=== PATIENT | female | born 1940 | race Caucasian/White ===

== ENCOUNTER 2016-07-21 14:30 | Inpatient (IN) | payer OTHER ==
[~2016-07-21] VITALS: Ht 165.1 cm; Wt 71.6 kg
[~2016-07-21 14:30] MED LIST: ALBUTEROL2.5 MG/3 M IH; ALKA-SELTZER PL25 MG PO; ASPIR-LOW81 MG PO; ATORVASTATIN CA40 MG PO; CARDIZEM CD,CA180 MG PO; HYDROCHLOROTHIA25 MG PO; LEXAPRO5 MG PO; METOPROLOL TART25 MG PO; MOEXIPRIL HCL7.5 MG PO; PEPCID COMPLET1 EACH PO; TYLENOL REGULA325 MG PO; UNIVASC7.5 MG PO; XARELTO20 MG PO
[2016-07-21 15:18] LABS: HEMATOCRIT 44.8 % (36.0-46.0); MCH 30.2 PG (29.0-34.0); MCHC 34.6 G/DL (30.0-36.0); MCV 87.3 FL (83-99); MEAN PLAT.VOLUME 10.8 uM^3 (9.5-12.4); PLATELET COUNT 161 K/uL (156-360); RBC DIS.WIDTH-CV 13.7 % (11.8-14.6); RBC DIS.WIDTH-SD 43.6 % (39-53); RED BLOOD COUNT 5.13 M/uL (3.80-5.20); WHITE BLOOD COUNT 26.5 K/uL (4.1-10.2)
[2016-07-21 15:22] LABS: EOSINOPHIL (%) 0 % (0-5); IMMATURE GRANULOCYTE (%) 0.4 % (0.0-0.7); LYMPHOCYTE COUNT 0.3 K/uL (1.0-2.8); MONOCYTE (%) 3.1 % (3-12); MONOCYTE COUNT 0.8 K/uL (0-0.8); NEUTROPHIL (%) 95.3 % (45-76); NEUTROPHIL COUNT 25.3 K/uL (1.8-6.4)
[2016-07-21 15:26] LABS: AMYLASE 59 IU/L (1-118); CHLORIDE 93 mEq/L (99-109); POTASSIUM 3.1 mEq/L (3.7-5.4); PROTHROMBIN TIME 10.5 (9.2-11.2); SODIUM 132 mEq/L (136-147)
[2016-07-21 15:28] LABS: GLUCOSE 126 mg/dL (70-99)
[2016-07-21 15:29] LABS: ANION GAP 14 MEQ/L (2-14)
[2016-07-21 15:31] LABS: SERUM ETHYL ALCOHOL < 10 mg/dL
[2016-07-21 15:32] LABS: GFR ESTIMATE (CALCULATED) 47 mL/min/
[2016-07-21 15:33] LABS: UREA NITROGEN (BUN) 13 mg/dL (9-23)
[2016-07-21 15:35] LABS: LIPASE 18 U/L (1.0-51.0)
[2016-07-21 15:38] LABS: TROP-I INTERPRETATION NEGATIVE; TROPONIN-I 0.11 ng/mL (0.0-0.30)
[2016-07-21 15:57] LABS: ADD MIUA? YES; BILIRUBIN NEGATIVE; BLOOD MODERATE; COLOR DK YELLOW ((YELLOW)); GLUCOSE (STRIP) NEGATIVE; KETONES NEGATIVE; LEUKOCYTES MODERATE; NITRITE NEGATIVE; PH, URINE 6.5 (5-8); PROTEIN (STRIP) 30; SPECIFIC GRAVITY 1.013 (1.000-1.030)
[2016-07-21 16:15] LABS: AMPHETAMINE NEGATIVE (500 ng/mL); BARBITURATES NEGATIVE (200 ng/mL); BENZODIAZEPINES NEGATIVE (150 ng/mL); COCAINE NEGATIVE (150 ng/mL); INTERNAL CONTROLS VALID? YES; METHADONE NEGATIVE (200 ng/mL); METHAMPHETAMINE NEGATIVE (500 ng/mL); OPIATES (MORPHINE) NEGATIVE (100 ng/mL); OXYCODONE NEGATIVE (100 ng/mL); PHENCYCLIDINE NEGATIVE (25 ng/mL); PROPOXYPHENE NEGATIVE (300 ng/mL); THC CANNABINOIDS NEGATIVE (50 ng/mL); TRICYCLIC ANTIDEPRESSANTS NEGATIVE (300 ng/mL)
[2016-07-21 17:02] LABS: BACTERIA 2+ /HPF; EPITHELIAL CELLS 1+ /HPF; MUCUS TRACE /LPF; UCUL ADDED? YES
[2016-07-21 17:03] LABS: CASTS PRESENT /LPF; CRYSTALS NONE SEEN
[2016-07-21 18:44] LABS: INFLUENZA A VIRAL ANTIGEN NEGATIVE; INFLUENZA B VIRAL ANTIGEN NEGATIVE
[2016-07-21 23:00] VITALS: BP 112/56; BP 113/56
[2016-07-22 04:00] VITALS: BP 127/69
[2016-07-22 07:34] LABS: MCHC 33.2 G/DL (30.0-36.0); MCV 87.4 FL (83-99); MEAN PLAT.VOLUME 11.4 uM^3 (9.5-12.4); PLATELET COUNT 128 K/uL (156-360); RBC DIS.WIDTH-CV 14.1 % (11.8-14.6); RBC DIS.WIDTH-SD 44.6 % (39-53); RED BLOOD COUNT 4.69 M/uL (3.80-5.20); WHITE BLOOD COUNT 21.3 K/uL (4.1-10.2)
[2016-07-22 08:01] LABS: TROP-I INTERPRETATION POSITIVE
[2016-07-22 08:02] LABS: TROPONIN-I 3.66 ng/mL (0.0-0.30)
[2016-07-22 08:05] LABS: ALKALINE PHOSPHATASE 64 IU/L (3-129); ANION GAP 13 MEQ/L (2-14); CHLORIDE 101 MEQ/L (99-109); GFR ESTIMATE (CALCULATED) 58 mL/min/; GLUCOSE 107 mg/dL (70-99); SAMPLE HEMOLYSIS CHECK 0; SAMPLE ICTERIC CHECK 0; SAMPLE LIPEMIA CHECK 0; SODIUM 135 MEQ/L (136-147); TOTAL BILIRUBIN 2.1 MG/DL (0.0-1.0); UREA NITROGEN (BUN) 14 mg/dL (9-23)
[2016-07-22 08:45] VITALS: BP 119/56
[2016-07-22 11:41] VITALS: BP 111/58
[2016-07-22 15:38] VITALS: BP 138/63
[2016-07-22 19:46] VITALS: BP 119/56
[2016-07-22 23:41] VITALS: BP 129/60
[2016-07-23 04:14] VITALS: BP 121/65
[2016-07-23 07:00] VITALS: BP 127/63
[2016-07-23 07:55] LABS: HEMATOCRIT 40.5 % (36.0-46.0); MCH 28.7 PG (29.0-34.0); MCHC 32.8 G/DL (30.0-36.0); MCV 87.5 FL (83-99); MEAN PLAT.VOLUME 10.8 uM^3 (9.5-12.4); PLATELET COUNT 104 K/uL (156-360); RBC DIS.WIDTH-CV 14.4 % (11.8-14.6); RBC DIS.WIDTH-SD 45.8 % (39-53); RED BLOOD COUNT 4.63 M/uL (3.80-5.20); WHITE BLOOD COUNT 13.7 K/uL (4.1-10.2)
[2016-07-23 08:15] LABS: TROP-I INTERPRETATION POSITIVE
[2016-07-23 08:17] LABS: TROPONIN-I 3.28 ng/mL (0.0-0.30)
[2016-07-23 09:54] LABS: ALKALINE PHOSPHATASE 64 IU/L (3-129); ANION GAP 12 MEQ/L (2-14); CHLORIDE 108 MEQ/L (99-109); GFR ESTIMATE (CALCULATED) 52 mL/min/; GLUCOSE 102 mg/dL (70-99); POTASSIUM 2.7 MEQ/L (3.7-5.4); SAMPLE HEMOLYSIS CHECK 0; SAMPLE ICTERIC CHECK 0; SAMPLE LIPEMIA CHECK 0; TOTAL BILIRUBIN 2.1 MG/DL (0.0-1.0); UREA NITROGEN (BUN) 17 mg/dL (9-23)
[2016-07-23 09:59] LABS: SODIUM 143 MEQ/L (136-147)
[2016-07-23 12:28] VITALS: BP 115/66
[2016-07-23 16:17] VITALS: BP 125/63
[2016-07-23 18:26] VITALS: BP 140/65
[2016-07-23 18:49] LABS: ANION GAP 11 MEQ/L (2-14); CHLORIDE 106 MEQ/L (99-109); GFR ESTIMATE (CALCULATED) 47 mL/min/; POTASSIUM 3.1 MEQ/L (3.7-5.4); SAMPLE HEMOLYSIS CHECK 0; SAMPLE ICTERIC CHECK 0; SAMPLE LIPEMIA CHECK 0; SODIUM 140 MEQ/L (136-147); UREA NITROGEN (BUN) 19 mg/dL (9-23)
[2016-07-23 18:50] LABS: GLUCOSE 194 mg/dL (70-99)
[2016-07-23 23:20] VITALS: BP 116/71
[2016-07-24 03:09] VITALS: BP 118/75
[2016-07-24 07:12] LABS: HEMATOCRIT 45.2 % (36.0-46.0); MCH 28.9 PG (29.0-34.0); MCHC 33.4 G/DL (30.0-36.0); MCV 86.6 FL (83-99); MEAN PLAT.VOLUME 11.5 uM^3 (9.5-12.4); PLATELET COUNT 129 K/uL (156-360); RBC DIS.WIDTH-CV 14.3 % (11.8-14.6); RBC DIS.WIDTH-SD 45.4 % (39-53); RED BLOOD COUNT 5.22 M/uL (3.80-5.20); WHITE BLOOD COUNT 14.4 K/uL (4.1-10.2)
[2016-07-24 07:39] LABS: ALKALINE PHOSPHATASE 73 IU/L (3-129); ANION GAP 14 MEQ/L (2-14); CHLORIDE 97 MEQ/L (99-109); GFR ESTIMATE (CALCULATED) 47 mL/min/; SAMPLE HEMOLYSIS CHECK 0; SAMPLE ICTERIC CHECK 0; SAMPLE LIPEMIA CHECK 0; SODIUM 141 MEQ/L (136-147); UREA NITROGEN (BUN) 15 mg/dL (9-23)
[2016-07-24 07:45] LABS: GLUCOSE 116 mg/dL (70-99); POTASSIUM 2.2 MEQ/L (3.7-5.4); TOTAL BILIRUBIN 2.8 MG/DL (0.0-1.0)
[2016-07-24 08:18] VITALS: BP 122/66
[2016-07-24 11:11] VITALS: BP 98/57
[2016-07-24 15:57] LABS: ANION GAP 13 MEQ/L (2-14); CHLORIDE 96 MEQ/L (99-109); GFR ESTIMATE (CALCULATED) 39 mL/min/; GLUCOSE 143 mg/dL (70-99); SAMPLE HEMOLYSIS CHECK 0; SAMPLE ICTERIC CHECK 0; SAMPLE LIPEMIA CHECK 0; SODIUM 138 MEQ/L (136-147); UREA NITROGEN (BUN) 17 mg/dL (9-23)
[2016-07-24 16:07] VITALS: BP 102/56
[2016-07-24 16:12] LABS: POTASSIUM 2.7 MEQ/L (3.7-5.4)
[2016-07-24 19:15] VITALS: BP 106/58
[2016-07-25 00:43] VITALS: BP 121/63
[2016-07-25 05:18] VITALS: BP 105/55
[2016-07-25 06:55] LABS: HEMATOCRIT 41.8 % (36.0-46.0); MCH 30.3 PG (29.0-34.0); MCHC 34.7 G/DL (30.0-36.0); MCV 87.4 FL (83-99); MEAN PLAT.VOLUME 11.7 uM^3 (9.5-12.4); PLATELET COUNT 116 K/uL (156-360); RBC DIS.WIDTH-CV 14.4 % (11.8-14.6); RBC DIS.WIDTH-SD 46.4 % (39-53); RED BLOOD COUNT 4.78 M/uL (3.80-5.20)
[2016-07-25 06:56] LABS: WHITE BLOOD COUNT 9.8 K/uL (4.1-10.2)
[2016-07-25 07:26] LABS: ALKALINE PHOSPHATASE 64 IU/L (3-129); ANION GAP 13 MEQ/L (2-14); CHLORIDE 97 MEQ/L (99-109); GFR ESTIMATE (CALCULATED) 33 mL/min/; SAMPLE HEMOLYSIS CHECK 0; SAMPLE ICTERIC CHECK 1; SAMPLE LIPEMIA CHECK 0; SODIUM 140 MEQ/L (136-147); UREA NITROGEN (BUN) 22 mg/dL (9-23)
[2016-07-25 07:30] LABS: GLUCOSE 93 mg/dL (70-99); POTASSIUM 3.3 MEQ/L (3.7-5.4); TOTAL BILIRUBIN 3.4 MG/DL (0.0-1.0)
[2016-07-25 09:07] VITALS: BP 125/60
[2016-07-25 12:26] VITALS: BP 151/65
[2016-07-25] MEDS ORDERED: CORDARONE200 MG PO (15:09)
[2016-07-25] MEDS ORDERED: UNIVASC7.5 MG PO (15:10)
[2016-07-25] MEDS ORDERED: HYDROCHLOROTHIA25 MG PO (15:10)
[2016-07-25] MEDS ORDERED: LO-DOSE ASPIRIN81 M2 PO (15:10)
[2016-07-25 16:40] VITALS: BP 112/58
[2016-07-25 20:00] VITALS: BP 113/56
[2016-07-26 00:03] VITALS: BP 122/56
[2016-07-26 04:16] VITALS: BP 108/55
[2016-07-26 06:42] LABS: HEMATOCRIT 40.5 % (36.0-46.0); MCH 29.8 PG (29.0-34.0); MCHC 33.6 G/DL (30.0-36.0); MCV 88.8 FL (83-99); MEAN PLAT.VOLUME 11.3 uM^3 (9.5-12.4); PLATELET COUNT 132 K/uL (156-360); RBC DIS.WIDTH-CV 14.9 % (11.8-14.6); RBC DIS.WIDTH-SD 48.1 % (39-53); RED BLOOD COUNT 4.56 M/uL (3.80-5.20); WHITE BLOOD COUNT 7.9 K/uL (4.1-10.2)
[2016-07-26 07:15] LABS: ALKALINE PHOSPHATASE 65 IU/L (3-129); ANION GAP 10 MEQ/L (2-14); GFR ESTIMATE (CALCULATED) 43 mL/min/; MAGNESIUM 1.6 mg/dl (1.3-2.7); POTASSIUM 3.8 MEQ/L (3.7-5.4); SAMPLE HEMOLYSIS CHECK 0; SAMPLE ICTERIC CHECK 0; SAMPLE LIPEMIA CHECK 0; SODIUM 141 MEQ/L (136-147); UREA NITROGEN (BUN) 28 mg/dL (9-23)
[2016-07-26 07:17] VITALS: BP 140/64
[2016-07-26 07:20] LABS: CHLORIDE 108 MEQ/L (99-109); GLUCOSE 119 mg/dL (70-99); TOTAL BILIRUBIN 2.3 MG/DL (0.0-1.0)
[2016-07-26 11:28] VITALS: BP 131/82
[2016-07-26 15:23] VITALS: BP 122/58
[2016-07-26 19:45] VITALS: BP 126/71
[2016-07-27] VITALS (7 sets, daily range): BP systolic 127–162; BP diastolic 60–75
[2016-07-27 06:40] LABS: HEMATOCRIT 39.6 % (36.0-46.0); MCHC 33.8 G/DL (30.0-36.0); MCV 88.8 FL (83-99); MEAN PLAT.VOLUME 11.7 uM^3 (9.5-12.4); PLATELET COUNT 170 K/uL (156-360); RBC DIS.WIDTH-CV 15.4 % (11.8-14.6); RBC DIS.WIDTH-SD 49.5 % (39-53); RED BLOOD COUNT 4.46 M/uL (3.80-5.20)
[2016-07-27 06:47] LABS: WHITE BLOOD COUNT 10.8 K/uL (4.1-10.2)
[2016-07-27 06:53] LABS: ALKALINE PHOSPHATASE 86 IU/L (3-129); ANION GAP 12 MEQ/L (2-14); CHLORIDE 107 MEQ/L (99-109); GFR ESTIMATE (CALCULATED) 47 mL/min/; GLUCOSE 99 mg/dL (70-99); POTASSIUM 4.1 MEQ/L (3.7-5.4); SAMPLE HEMOLYSIS CHECK 0; SAMPLE ICTERIC CHECK 0; SAMPLE LIPEMIA CHECK 0; SODIUM 139 MEQ/L (136-147); TOTAL BILIRUBIN 2.2 MG/DL (0.0-1.0); UREA NITROGEN (BUN) 25 mg/dL (9-23)
[2016-07-28 03:57] VITALS: BP 123/58
[2016-07-28 06:49] LABS: HEMATOCRIT 39.2 % (36.0-46.0); MCH 28.1 PG (29.0-34.0); MCHC 32.1 G/DL (30.0-36.0); MCV 87.5 FL (83-99); MEAN PLAT.VOLUME 11.2 uM^3 (9.5-12.4); PLATELET COUNT 193 K/uL (156-360); RBC DIS.WIDTH-CV 15.6 % (11.8-14.6); RBC DIS.WIDTH-SD 50.4 % (39-53); RED BLOOD COUNT 4.48 M/uL (3.80-5.20); WHITE BLOOD COUNT 10.3 K/uL (4.1-10.2)
[2016-07-28] MEDS ORDERED: LOPRESSOR25 MG PO (06:51)
[2016-07-28] MEDS ORDERED: CLOPIDOGREL75 MG PO (06:51)
[2016-07-28] MEDS ORDERED: NAFCILLIN SODIUM2 GM IV (06:52)
[2016-07-28 07:19] LABS: ALKALINE PHOSPHATASE 102 IU/L (3-129); ANION GAP 11 MEQ/L (2-14); CHLORIDE 109 MEQ/L (99-109); GFR ESTIMATE (CALCULATED) 47 mL/min/; GLUCOSE 101 mg/dL (70-99); POTASSIUM 4.2 MEQ/L (3.7-5.4); SAMPLE HEMOLYSIS CHECK 0; SAMPLE ICTERIC CHECK 0; SAMPLE LIPEMIA CHECK 0; SODIUM 141 MEQ/L (136-147); TOTAL BILIRUBIN 2.5 MG/DL (0.0-1.0); UREA NITROGEN (BUN) 21 mg/dL (9-23)
[2016-07-28 07:25] VITALS: BP 150/71
[2016-07-28 11:25] VITALS: BP 116/56
[2016-07-28 15:17] VITALS: BP 138/62
[2016-07-28 19:28] VITALS: BP 159/69
[2016-07-28 23:51] VITALS: BP 145/76
[2016-07-29 04:24] VITALS: BP 150/72
[2016-07-29 07:11] VITALS: BP 157/74
[2016-07-29 11:22] VITALS: BP 140/63
[2016-07-29 15:51] VITALS: BP 141/89
[2016-07-29 19:47] VITALS: BP 158/70
[2016-07-29 23:41] VITALS: BP 153/82
[2016-07-30 03:57] VITALS: BP 165/81
[2016-07-30 08:30] VITALS: BP 164/74
[2016-07-30 11:18] VITALS: BP 152/67
[2016-07-30 16:30] VITALS: BP 163/72
[2016-07-30 20:15] VITALS: BP 152/77
[2016-07-31] MEDS ORDERED: ATORVASTATIN CA40 MG PO (00:01)
[2016-07-31 00:30] VITALS: BP 123/72
[2016-07-31 04:30] VITALS: BP 142/81
[2016-07-31 08:00] VITALS: BP 153/78
[2016-07-31 12:11] VITALS: BP 133/70
[2016-07-31 19:15] VITALS: BP 153/70
[2016-07-31 23:15] VITALS: BP 156/75
[2016-08-01 03:00] VITALS: BP 155/70
[2016-08-01 07:24] VITALS: BP 142/83
[2016-08-01 11:28] VITALS: BP 133/65
[2016-08-01 16:05] VITALS: BP 158/74
[2016-08-01 16:56] LABS: INFLUENZA A VIRAL ANTIGEN NEGATIVE; INFLUENZA B VIRAL ANTIGEN NEGATIVE
[2016-08-01 19:35] VITALS: BP 131/76
[2016-08-01 23:30] VITALS: BP 120/57
[2016-08-02 03:45] VITALS: BP 152/75
[2016-08-02 06:46] VITALS: BP 138/61
[2016-08-02 11:13] VITALS: BP 128/60
[2016-08-02 16:11] VITALS: BP 129/58
[2016-08-02 20:04] VITALS: BP 143/81
[2016-08-02 23:27] VITALS: BP 165/70
[2016-08-03 03:40] VITALS: BP 122/83
[2016-08-03 07:13] VITALS: BP 153/76
[2016-08-03 11:01] VITALS: BP 130/74
[2016-08-03 15:14] VITALS: BP 128/71
[2016-08-03 19:18] VITALS: BP 125/61
[2016-08-03 22:54] VITALS: BP 132/73
[2016-08-04 04:10] VITALS: BP 128/70
[2016-08-04 07:08] LABS: HEMATOCRIT 35.7 % (36.0-46.0); MCH 30.8 PG (29.0-34.0); MCHC 34.5 G/DL (30.0-36.0); MCV 89.3 FL (83-99); RBC DIS.WIDTH-CV 16.9 % (11.8-14.6); RBC DIS.WIDTH-SD 54.5 % (39-53); WHITE BLOOD COUNT 10.5 K/uL (4.1-10.2)
[2016-08-04 07:28] LABS: ALKALINE PHOSPHATASE 90 IU/L (3-129); ANION GAP 12 MEQ/L (2-14); CHLORIDE 102 MEQ/L (99-109); GFR ESTIMATE (CALCULATED) 39 mL/min/; GLUCOSE 98 mg/dL (70-99); POTASSIUM 3.3 MEQ/L (3.7-5.4); SAMPLE HEMOLYSIS CHECK 0; SAMPLE ICTERIC CHECK 0; SAMPLE LIPEMIA CHECK 0; SODIUM 140 MEQ/L (136-147); TOTAL BILIRUBIN 1.7 MG/DL (0.0-1.0); UREA NITROGEN (BUN) 13 mg/dL (9-23)
[2016-08-04 07:38] LABS: MEAN PLAT.VOLUME 11.1 uM^3 (9.5-12.4)
[2016-08-04 07:39] LABS: PLATELET COUNT 312 K/uL (156-360)
[2016-08-04] MEDS ORDERED: PACERONE200 MG PO (09:17)
[2016-08-04] MEDS ORDERED: K-DUR20 MEQ PO (09:18)
[2016-08-04] MEDS ORDERED: FUROSEMIDE20 MG PO (09:19)
[2016-08-04 09:20] VITALS: BP 109/69
[2016-08-04 11:00] VITALS: BP 116/64
== END 2016-08-04 14:21 | disposition designated cancer center or children's hospital (05) | DRG 871 ==
LOC: EME 14:30 → 4EAST 17:37 → EDOF 17:37 → 4EAST 22:43
PROVIDERS: Emergency Medicine; Internal Medicine; Internal Medicine Cardiovascular Disease
PROC: 02HV33Z Insertion of Infusion Device into Superior Vena Cava, Percutaneous Approach (ICD-10-PCS; principal; 2016-07-28)
PROC: 05H633Z Insertion of Infusion Device into Left Subclavian Vein, Percutaneous Approach (ICD-10-PCS; 2016-07-31)
PROC: 02H633Z Insertion of Infusion Device into Right Atrium, Percutaneous Approach (ICD-10-PCS; 2016-08-04)
DX: A41.01 Sepsis due to Methicillin susceptible Staphylococcus aureus (principal); I33.0 Acute and subacute infective endocarditis; I21.4 Non-ST elevation (NSTEMI) myocardial infarction; I63.40 Cerebral infarction due to embolism of unspecified cerebral artery; I50.31 Acute diastolic (congestive) heart failure; R13.10 Dysphagia, unspecified; I48.0 Paroxysmal atrial fibrillation; J44.9 Chronic obstructive pulmonary disease, unspecified; N39.0 Urinary tract infection, site not specified; I10 Essential (primary) hypertension; I25.10 Atherosclerotic heart disease of native coronary artery without angina pectoris; R41.0 Disorientation, unspecified; E87.6 Hypokalemia; F17.200 Nicotine dependence, unspecified, uncomplicated; I25.2 Old myocardial infarction; I34.0 Nonrheumatic mitral (valve) insufficiency; E78.5 Hyperlipidemia, unspecified; N17.9 Acute kidney failure, unspecified; K21.9 Gastro-esophageal reflux disease without esophagitis
CPT/HCPCS: 70450; 70551; 71010; 71020; 74177; 76937; 80048; 80048 91; 80053; 81003; 82150; 83605; 83690; 83735; 83880; 84132 91; 84484; 85025; 85027; 85610; 85730; 86850; 86900; 86901; 86920; 87040; 87077; 87086; 87186; 87502; 87801; 92610 GN; 93005; 93306; 93880; 94640; 94799; 97530 GP; 99281; 99285; C1894; G0480; J0692; J0696; J1940; J3370; J3480; J7030; J7050; S0032

== ENCOUNTER 2016-08-07 19:38 | Inpatient (IN) | payer OTHER ==
[~2016-08-07] VITALS: Ht 172.7 cm; Wt 70.9 kg
[~2016-08-07 19:38] MED LIST changes: +CLOPIDOGREL75 MG PO; +CORDARONE200 MG PO; +FUROSEMIDE20 MG PO; +K-DUR20 MEQ PO; +LO-DOSE ASPIRIN81 M2 PO; +LOPRESSOR25 MG PO; +NAFCILLIN SODIUM2 GM IV; +PACERONE200 MG PO
[2016-08-07 21:42] LABS: MCH 29.5 PG (29.0-34.0); MCHC 32.8 G/DL (30.0-36.0); MCV 89.9 FL (83-99); PLATELET COUNT 277 K/uL (156-360); RBC DIS.WIDTH-CV 17.4 % (11.8-14.6); RBC DIS.WIDTH-SD 55.6 % (39-53); RED BLOOD COUNT 3.56 M/uL (3.80-5.20); WHITE BLOOD COUNT 8.8 K/uL (4.1-10.2)
[2016-08-07 21:52] LABS: CHLORIDE 107 mEq/L (99-109); POTASSIUM 3.2 mEq/L (3.7-5.4); SODIUM 145 mEq/L (136-147)
[2016-08-07 21:53] LABS: GLUCOSE 132 mg/dL (70-99)
[2016-08-07 21:55] LABS: ANION GAP 12 MEQ/L (2-14)
[2016-08-07 21:57] LABS: GFR ESTIMATE (CALCULATED) 36 mL/min/
[2016-08-07 21:58] LABS: UREA NITROGEN (BUN) 14 mg/dL (9-23)
[2016-08-07 22:03] LABS: ADD MIUA? YES; BILIRUBIN NEGATIVE; BLOOD SMALL; COLOR YELLOW ((YELLOW)); GLUCOSE (STRIP) 50; KETONES NEGATIVE; LEUKOCYTES NEGATIVE; NITRITE NEGATIVE; PROTEIN (STRIP) NEGATIVE; UROBILINOGEN 0.2 MG/DL (0.2-1.0)
[2016-08-07 22:05] LABS: TROP-I INTERPRETATION NEGATIVE; TROPONIN-I 0.16 ng/mL (0.0-0.30)
[2016-08-07 22:21] LABS: BACTERIA RARE /HPF; EPITHELIAL CELLS RARE /HPF; MUCUS TRACE /LPF; RED BLOOD CELLS 0-5 /HPF (0-5); UCUL ADDED? NO; UNCLASSIFIED CASTS 0-5 /LPF
[2016-08-07] MEDS ORDERED: NAFCIL2 GM IV (23:24)
[2016-08-07] MEDS ORDERED: ALPRAZOLAM0.25 M2 PO (23:25)
[2016-08-07] MEDS ORDERED: LASIX10 MG/ML PO (23:27)
[2016-08-07] MEDS ORDERED: MAG-OXIDE400 MG PO (23:28)
[2016-08-07] MEDS ORDERED: POTASSIUM CHLO20 ME2 PO (23:29)
[2016-08-07] MEDS ORDERED: PLAVIX75 MG PO (23:31)
[2016-08-07] MEDS ORDERED: AMIODARONE HCL100 MG PO (23:35)
[2016-08-07] MEDS ORDERED: DUONEB 2.5-0.5 M3 ML AEROSOL (23:36)
[2016-08-07] MEDS ORDERED: CALMOSEPTINE O120 GM TP (23:37)
[2016-08-07] MEDS ORDERED: AQUAPHOR W-NAT50 GM TP (23:37)
[2016-08-07] MEDS ORDERED: NYSTATIN15 G1 TP (23:39)
[2016-08-08 06:08] VITALS: BP 123/60
[2016-08-08 07:52] LABS: TROP-I INTERPRETATION NEGATIVE; TROPONIN-I 0.12 ng/mL (0.0-0.30)
[2016-08-08 08:00] VITALS: BP 145/70
[2016-08-08 08:11] LABS: HDL CHOLESTEROL 32 MG/DL (Desirable>=50); LDL CHOLESTEROL 62 mg/dL (Desirable<100); NON-HDL CHOLESTEROL 83 mg/dL (Desirable<160); TOTAL CHOLESTEROL 115 mg/dL (Desirable<200); TRIGLYCERIDES 105 MG/DL (Normal: <150)
[2016-08-08 08:40] LABS: Estimated Average Glucose 131 mg/dL (70-123); HEMOGLOBIN A1c (GLYCOHEMOGLOB) 6.2 % HGB (Below 5.7)
[2016-08-08 08:43] LABS: HEMATOCRIT 33.9 % (36.0-46.0); MCH 29.5 PG (29.0-34.0); MCHC 31.9 G/DL (30.0-36.0); MCV 92.6 FL (83-99); MEAN PLAT.VOLUME 11.3 uM^3 (9.5-12.4); PLATELET COUNT 287 K/uL (156-360); RBC DIS.WIDTH-CV 17.9 % (11.8-14.6); RBC DIS.WIDTH-SD 58.7 % (39-53); RED BLOOD COUNT 3.66 M/uL (3.80-5.20)
[2016-08-08 09:04] LABS: ANION GAP 16 MEQ/L (2-14); CHLORIDE 108 MEQ/L (99-109); GFR ESTIMATE (CALCULATED) 33 mL/min/; POTASSIUM 3.4 MEQ/L (3.7-5.4); SODIUM 149 MEQ/L (136-147); UREA NITROGEN (BUN) 16 mg/dL (9-23)
[2016-08-08 09:11] LABS: GLUCOSE 94 mg/dL (70-99)
[2016-08-08 13:25] VITALS: BP 140/90
[2016-08-08 15:23] VITALS: BP 134/86
[2016-08-08 15:44] LABS: TROP-I INTERPRETATION NEGATIVE; TROPONIN-I 0.18 ng/mL (0.0-0.30)
[2016-08-08 19:29] VITALS: BP 118/66
[2016-08-09 00:11] VITALS: BP 110/64
[2016-08-09 04:00] VITALS: BP 108/66
[2016-08-09 07:23] LABS: ANION GAP 11 MEQ/L (2-14); CHLORIDE 103 MEQ/L (99-109); GFR ESTIMATE (CALCULATED) 36 mL/min/; GLUCOSE 104 mg/dL (70-99); POTASSIUM 3.3 MEQ/L (3.7-5.4); SAMPLE HEMOLYSIS CHECK 0; SAMPLE ICTERIC CHECK 0; SAMPLE LIPEMIA CHECK 0; SODIUM 144 MEQ/L (136-147); UREA NITROGEN (BUN) 18 mg/dL (9-23)
[2016-08-09 07:27] VITALS: BP 126/58
[2016-08-09 07:48] LABS: HEMATOCRIT 30.8 % (36.0-46.0); MCHC 32.1 G/DL (30.0-36.0); MCV 90.3 FL (83-99); PLATELET COUNT 260 K/uL (156-360); RBC DIS.WIDTH-CV 17.3 % (11.8-14.6); RBC DIS.WIDTH-SD 55.1 % (39-53); RED BLOOD COUNT 3.41 M/uL (3.80-5.20); WHITE BLOOD COUNT 7.1 K/uL (4.1-10.2)
[2016-08-09 11:05] VITALS: BP 118/71
[2016-08-09 15:04] VITALS: BP 137/67
[2016-08-09 19:29] VITALS: BP 125/82
[2016-08-09 19:34] LABS: C DIFF TOXIN NEGATIVE (NEGATIVE)
[2016-08-09 19:37] LABS: PROBE CHECK PASS; SPECIMEN PROCESSING CONTROL PASS
[2016-08-09 23:21] LABS: INTER. NORMALIZED RATIO 1.1; PROTHROMBIN TIME 11.5 (9.2-11.2); PTT 29.5 (25-32)
[2016-08-10 04:00] VITALS: BP 113/65
[2016-08-10 07:18] LABS: HEMATOCRIT 31.4 % (36.0-46.0); MCH 28.5 PG (29.0-34.0); MCHC 31.5 G/DL (30.0-36.0); MCV 90.5 FL (83-99); MEAN PLAT.VOLUME 11.2 uM^3 (9.5-12.4); PLATELET COUNT 275 K/uL (156-360); RBC DIS.WIDTH-CV 17.9 % (11.8-14.6); RBC DIS.WIDTH-SD 57.9 % (39-53); RED BLOOD COUNT 3.47 M/uL (3.80-5.20); WHITE BLOOD COUNT 8.5 K/uL (4.1-10.2)
[2016-08-10 07:43] LABS: ANION GAP 10 MEQ/L (2-14); CHLORIDE 100 MEQ/L (99-109); GFR ESTIMATE (CALCULATED) 39 mL/min/; GLUCOSE 116 mg/dL (70-99); POTASSIUM 2.9 MEQ/L (3.7-5.4); SAMPLE HEMOLYSIS CHECK 0; SAMPLE ICTERIC CHECK 0; SAMPLE LIPEMIA CHECK 0; SODIUM 144 MEQ/L (136-147); UREA NITROGEN (BUN) 25 mg/dL (9-23)
[2016-08-10 07:50] VITALS: BP 142/70
[2016-08-10 08:22] LABS: MAGNESIUM 1.7 mg/dl (1.3-2.7)
[2016-08-10 12:50] VITALS: BP 130/78
[2016-08-10 15:23] VITALS: BP 125/67
[2016-08-10 19:41] VITALS: BP 128/77
[2016-08-11 00:05] VITALS: BP 121/79
[2016-08-11 04:08] VITALS: BP 134/81
[2016-08-11 06:58] LABS: HEMATOCRIT 30.5 % (36.0-46.0); MCH 29.2 PG (29.0-34.0); MCHC 31.8 G/DL (30.0-36.0); MCV 91.9 FL (83-99); MEAN PLAT.VOLUME 11.3 uM^3 (9.5-12.4); PLATELET COUNT 277 K/uL (156-360); RBC DIS.WIDTH-CV 18.5 % (11.8-14.6); RBC DIS.WIDTH-SD 60.3 % (39-53); RED BLOOD COUNT 3.32 M/uL (3.80-5.20); WHITE BLOOD COUNT 7.7 K/uL (4.1-10.2)
[2016-08-11 07:16] LABS: ANION GAP 10 MEQ/L (2-14); CHLORIDE 103 MEQ/L (99-109); GFR ESTIMATE (CALCULATED) 39 mL/min/; GLUCOSE 101 mg/dL (70-99); SAMPLE HEMOLYSIS CHECK 0; SAMPLE ICTERIC CHECK 0; SAMPLE LIPEMIA CHECK 0; SODIUM 146 MEQ/L (136-147); UREA NITROGEN (BUN) 24 mg/dL (9-23)
[2016-08-11 07:28] LABS: POTASSIUM 4.1 MEQ/L (3.7-5.4)
[2016-08-11 07:38] VITALS: BP 136/89
[2016-08-11 09:32] LABS: INTER. NORMALIZED RATIO 1.1; PROTHROMBIN TIME 11.3 (9.2-11.2)
[2016-08-11 11:17] VITALS: BP 142/91
[2016-08-11 15:35] VITALS: BP 134/77
[2016-08-11 17:53] LABS: TYPE OF FLUID THORACENTESIS
[2016-08-11 18:36] LABS: BODY FLUID EOSINOPHILS 1 % (0-25); BODY FLUID RBC'S 4000 /MM^3 (0-100); BODY FLUID WBC'S 675 /MM^3 (0-500); COMMENT MANY MACROPHAGES AND MESOTHELIAL CELLS SEEN; MONONUCLEAR WBC'S 76 %; POLYNUCLEAR WBC'S 23 % (0-25)
[2016-08-11 19:41] LABS: BODY FLUID LDH 109 IU/L; BODY FLUID PROTEIN < 3 G/DL
[2016-08-12] VITALS: BP 95/54
[2016-08-12 07:28] LABS: EOSINOPHIL (%) 4.5 % (0-5); EOSINOPHIL COUNT 0.3 K/uL (0-0.3); HEMATOCRIT 26.9 % (36.0-46.0); IMMATURE GRANULOCYTE (%) 0.5 % (0.0-0.7); INSTRUMENT ABS NEUTROPHIL CT 4.9 K/uL; LYMPHOCYTE COUNT 1.7 K/uL (1.0-2.8); MCHC 31.6 G/DL (30.0-36.0); MCV 91.8 FL (83-99); MONOCYTE (%) 8.6 % (3-12); MONOCYTE COUNT 0.7 K/uL (0-0.8); NEUTROPHIL (%) 64.3 % (45-76); NEUTROPHIL COUNT 4.9 K/uL (1.8-6.4); PLATELET COUNT 209 K/uL (156-360); RBC DIS.WIDTH-CV 18.5 % (11.8-14.6); RBC DIS.WIDTH-SD 60.8 % (39-53); RED BLOOD COUNT 2.93 M/uL (3.80-5.20); WHITE BLOOD COUNT 7.6 K/uL (4.1-10.2)
[2016-08-12 07:51] LABS: ANION GAP 10 MEQ/L (2-14); CHLORIDE 103 MEQ/L (99-109); GFR ESTIMATE (CALCULATED) 43 mL/min/; GLUCOSE 99 mg/dL (70-99); POTASSIUM 3.9 MEQ/L (3.7-5.4); SAMPLE HEMOLYSIS CHECK 0; SAMPLE ICTERIC CHECK 0; SAMPLE LIPEMIA CHECK 0; SODIUM 145 MEQ/L (136-147); UREA NITROGEN (BUN) 25 mg/dL (9-23)
[2016-08-12 08:11] VITALS: BP 126/72
[2016-08-12 11:20] VITALS: BP 120/68
[2016-08-12 13:05] LABS: HEMATOCRIT 27.9 % (36.0-46.0); MCH 29.3 PG (29.0-34.0); MCHC 31.5 G/DL (30.0-36.0); MEAN PLAT.VOLUME 11.4 uM^3 (9.5-12.4); PLATELET COUNT 213 K/uL (156-360); RBC DIS.WIDTH-CV 18.6 % (11.8-14.6); RBC DIS.WIDTH-SD 61.4 % (39-53); WHITE BLOOD COUNT 8.2 K/uL (4.1-10.2)
[2016-08-12 16:32] VITALS: BP 96/46
[2016-08-12 18:45] LABS: BODY FLUID PH 8.2 (())
[2016-08-12 22:34] VITALS: BP 121/56
[2016-08-13 00:22] VITALS: BP 121/61
[2016-08-13 07:06] LABS: EOSINOPHIL COUNT 0.2 K/uL (0-0.3); HEMATOCRIT 26.3 % (36.0-46.0); IMMATURE GRANULOCYTE (%) 0.8 % (0.0-0.7); IMMATURE GRANULOCYTE COUNT 0.1 K/uL; INSTRUMENT ABS NEUTROPHIL CT 5.2 K/uL; LYMPHOCYTE COUNT 1.4 K/uL (1.0-2.8); MCH 28.9 PG (29.0-34.0); MCHC 31.6 G/DL (30.0-36.0); MCV 91.6 FL (83-99); MEAN PLAT.VOLUME 11.6 uM^3 (9.5-12.4); MONOCYTE (%) 9.7 % (3-12); MONOCYTE COUNT 0.7 K/uL (0-0.8); NEUTROPHIL (%) 67.8 % (45-76); NEUTROPHIL COUNT 5.2 K/uL (1.8-6.4); PLATELET COUNT 207 K/uL (156-360); RBC DIS.WIDTH-CV 18.4 % (11.8-14.6); RBC DIS.WIDTH-SD 59.6 % (39-53); RED BLOOD COUNT 2.87 M/uL (3.80-5.20); WHITE BLOOD COUNT 7.6 K/uL (4.1-10.2)
[2016-08-13 07:28] LABS: ANION GAP 10 MEQ/L (2-14); CHLORIDE 102 MEQ/L (99-109); GFR ESTIMATE (CALCULATED) 39 mL/min/; GLUCOSE 116 mg/dL (70-99); SAMPLE HEMOLYSIS CHECK 0; SAMPLE ICTERIC CHECK 0; SAMPLE LIPEMIA CHECK 0; SODIUM 143 MEQ/L (136-147); UREA NITROGEN (BUN) 25 mg/dL (9-23)
[2016-08-13 07:47] VITALS: BP 122/60
[2016-08-13 11:56] VITALS: BP 120/62
[2016-08-13 16:05] VITALS: BP 122/63
[2016-08-14] VITALS: BP 112/56; BP 129/57
[2016-08-14 07:41] LABS: EOSINOPHIL (%) 3.2 % (0-5); EOSINOPHIL COUNT 0.2 K/uL (0-0.3); IMMATURE GRANULOCYTE (%) 0.6 % (0.0-0.7); INSTRUMENT ABS NEUTROPHIL CT 4.8 K/uL; LYMPHOCYTE COUNT 1.1 K/uL (1.0-2.8); MCH 29.5 PG (29.0-34.0); MCHC 31.5 G/DL (30.0-36.0); MCV 93.5 FL (83-99); MEAN PLAT.VOLUME 11.8 uM^3 (9.5-12.4); MONOCYTE (%) 9.8 % (3-12); MONOCYTE COUNT 0.7 K/uL (0-0.8); NEUTROPHIL (%) 69.8 % (45-76); NEUTROPHIL COUNT 4.8 K/uL (1.8-6.4); PLATELET COUNT 194 K/uL (156-360); RBC DIS.WIDTH-CV 19.1 % (11.8-14.6); RBC DIS.WIDTH-SD 62.3 % (39-53); RED BLOOD COUNT 2.78 M/uL (3.80-5.20); WHITE BLOOD COUNT 6.9 K/uL (4.1-10.2)
[2016-08-14 07:55] LABS: ANION GAP 11 MEQ/L (2-14); CHLORIDE 102 MEQ/L (99-109); GFR ESTIMATE (CALCULATED) 39 mL/min/; GLUCOSE 109 mg/dL (70-99); SAMPLE HEMOLYSIS CHECK 0; SAMPLE ICTERIC CHECK 0; SAMPLE LIPEMIA CHECK 0; SODIUM 141 MEQ/L (136-147); UREA NITROGEN (BUN) 22 mg/dL (9-23)
[2016-08-14 08:00] VITALS: BP 121/70
[2016-08-14 12:07] VITALS: BP 127/63
[2016-08-14 23:30] VITALS: BP 109/47
[2016-08-15] VITALS (11 sets, daily range): BP systolic 102–139; BP diastolic 47–67
[2016-08-15 08:02] LABS: HEMATOCRIT 33.1 % (36.0-46.0); MCH 28.8 PG (29.0-34.0); MCHC 32.3 G/DL (30.0-36.0); MEAN PLAT.VOLUME 11.4 uM^3 (9.5-12.4); PLATELET COUNT 198 K/uL (156-360); RBC DIS.WIDTH-CV 18.9 % (11.8-14.6); RBC DIS.WIDTH-SD 57.5 % (39-53); WHITE BLOOD COUNT 6.3 K/uL (4.1-10.2)
[2016-08-15 08:07] LABS: RED BLOOD COUNT 3.72 M/uL (3.80-5.20)
[2016-08-15 08:13] LABS: ANION GAP 10 MEQ/L (2-14); CHLORIDE 104 MEQ/L (99-109); GFR ESTIMATE (CALCULATED) 33 mL/min/; GLUCOSE 106 mg/dL (70-99); POTASSIUM 3.7 MEQ/L (3.7-5.4); SAMPLE HEMOLYSIS CHECK 0; SAMPLE ICTERIC CHECK 0; SAMPLE LIPEMIA CHECK 0; SODIUM 142 MEQ/L (136-147); UREA NITROGEN (BUN) 21 mg/dL (9-23)
[2016-08-16] VITALS: BP 122/75
[2016-08-16 07:25] LABS: HEMATOCRIT 35.2 % (36.0-46.0); MCH 28.3 PG (29.0-34.0); MCHC 31.5 G/DL (30.0-36.0); MCV 89.8 FL (83-99); MEAN PLAT.VOLUME 11.7 uM^3 (9.5-12.4); PLATELET COUNT 217 K/uL (156-360); RBC DIS.WIDTH-CV 19.3 % (11.8-14.6); RBC DIS.WIDTH-SD 60.7 % (39-53); RED BLOOD COUNT 3.92 M/uL (3.80-5.20); WHITE BLOOD COUNT 5.9 K/uL (4.1-10.2)
[2016-08-16 07:51] VITALS: BP 126/74
[2016-08-16 08:32] LABS: ANION GAP 11 MEQ/L (2-14); CHLORIDE 103 MEQ/L (99-109); GFR ESTIMATE (CALCULATED) 39 mL/min/; GLUCOSE 93 mg/dL (70-99); POTASSIUM 3.7 MEQ/L (3.7-5.4); SAMPLE HEMOLYSIS CHECK 0; SAMPLE ICTERIC CHECK 0; SAMPLE LIPEMIA CHECK 0; SODIUM 141 MEQ/L (136-147); UREA NITROGEN (BUN) 19 mg/dL (9-23)
[2016-08-16 15:22] VITALS: BP 140/65
[2016-08-16 19:42] LABS: POINT-OF-CARE METER ID UU14174225
[2016-08-17 00:16] VITALS: BP 133/76
[2016-08-17 07:51] VITALS: BP 126/62
[2016-08-17 09:18] LABS: BASOPHIL COUNT 0.1 K/uL (0-0.1); EOSINOPHIL (%) 1.2 % (0-5); EOSINOPHIL COUNT 0.1 K/uL (0-0.3); HEMATOCRIT 37.6 % (36.0-46.0); IMMATURE GRANULOCYTE (%) 0.3 % (0.0-0.7); INSTRUMENT ABS NEUTROPHIL CT 8.4 K/uL; MCHC 31.9 G/DL (30.0-36.0); MCV 90.8 FL (83-99); MEAN PLAT.VOLUME 11.5 uM^3 (9.5-12.4); MONOCYTE COUNT 0.7 K/uL (0-0.8); NEUTROPHIL (%) 80.9 % (45-76); NEUTROPHIL COUNT 8.4 K/uL (1.8-6.4); PLATELET COUNT 241 K/uL (156-360); RBC DIS.WIDTH-CV 19.4 % (11.8-14.6); RBC DIS.WIDTH-SD 61.1 % (39-53); RED BLOOD COUNT 4.14 M/uL (3.80-5.20)
[2016-08-17 09:30] LABS: WHITE BLOOD COUNT 10.4 K/uL (4.1-10.2)
[2016-08-17 09:38] LABS: ANION GAP 15 MEQ/L (2-14); CHLORIDE 102 MEQ/L (99-109); GFR ESTIMATE (CALCULATED) 39 mL/min/; GLUCOSE 74 mg/dL (70-99); POTASSIUM 3.9 MEQ/L (3.7-5.4); SAMPLE HEMOLYSIS CHECK 0; SAMPLE ICTERIC CHECK 0; SAMPLE LIPEMIA CHECK 0; SODIUM 141 MEQ/L (136-147); UREA NITROGEN (BUN) 21 mg/dL (9-23)
[2016-08-18 00:09] VITALS: BP 133/71
[2016-08-18 07:34] VITALS: BP 127/64
[2016-08-18 08:12] LABS: POINT-OF-CARE METER ID UU14174225
[2016-08-18 12:04] LABS: POINT-OF-CARE METER ID UU14188625
[2016-08-18 15:50] VITALS: BP 125/60
[2016-08-18] MEDS ORDERED: XARELTO1 EACH PO (15:55)
[2016-08-18] MEDS ORDERED: PROTONIX40 MG PO (15:57)
[2016-08-18 16:37] LABS: POINT-OF-CARE METER ID UU14188625
[2016-08-18 23:45] VITALS: BP 129/73
[2016-08-19] VITALS: BP 110/51
[2016-08-19 06:53] LABS: HEMATOCRIT 34.2 % (36.0-46.0); MCHC 31.6 G/DL (30.0-36.0); MCV 91.7 FL (83-99); MEAN PLAT.VOLUME 11.3 uM^3 (9.5-12.4); PLATELET COUNT 199 K/uL (156-360); RBC DIS.WIDTH-CV 18.8 % (11.8-14.6); RBC DIS.WIDTH-SD 60.7 % (39-53); RED BLOOD COUNT 3.73 M/uL (3.80-5.20)
[2016-08-19 07:13] LABS: WHITE BLOOD COUNT 7.1 K/uL (4.1-10.2)
[2016-08-19 08:51] VITALS: BP 110/74
[2016-08-19] MEDS ORDERED: LINEZOLID600 MG PO (12:12)
== END 2016-08-19 14:30 | DRG 189 ==
LOC: EME → EDBD 19:38 → 5WEST 08-08 04:26 → EDOF 08-08 04:26 → 5WEST 08-08 05:45 → 5SOUTH 08-08 10:32
PROVIDERS: Emergency Medicine; Hospitalist; Internal Medicine; Internal Medicine Gastroenterology; Physician Assistant Medical; Radiology Diagnostic Radiology; Specialist
PROC: 0W9B3ZZ Drainage of Left Pleural Cavity, Percutaneous Approach (ICD-10-PCS; principal; 2016-08-11)
PROC: 30233N1 Transfusion of Nonautologous Red Blood Cells into Peripheral Vein, Percutaneous Approach (ICD-10-PCS; 2016-08-14)
DX: J96.21 Acute and chronic respiratory failure with hypoxia (principal); I50.31 Acute diastolic (congestive) heart failure; I33.0 Acute and subacute infective endocarditis; G93.41 Metabolic encephalopathy; J81.1 Chronic pulmonary edema; T82.868A Thrombosis due to vascular prosthetic devices, implants and grafts, initial encounter; N39.0 Urinary tract infection, site not specified; R78.81 Bacteremia; K92.1 Melena; J90 Pleural effusion, not elsewhere classified; J44.9 Chronic obstructive pulmonary disease, unspecified; K21.9 Gastro-esophageal reflux disease without esophagitis; Z99.81 Dependence on supplemental oxygen; I48.2 Chronic atrial fibrillation; E78.5 Hyperlipidemia, unspecified; N18.3 Chronic kidney disease, stage 3 (moderate); R53.83 Other fatigue; F17.210 Nicotine dependence, cigarettes, uncomplicated; I34.0 Nonrheumatic mitral (valve) insufficiency; Z79.82 Long term (current) use of aspirin; E87.6 Hypokalemia; R41.0 Disorientation, unspecified; D64.9 Anemia, unspecified; B95.61 Methicillin susceptible Staphylococcus aureus infection as the cause of diseases classified elsewhere; I12.9 Hypertensive chronic kidney disease with stage 1 through stage 4 chronic kidney disease, or unspecified chronic kidney disease; Z88.8 Allergy status to other drugs, medicaments and biological substances; Z86.73 Personal history of transient ischemic attack (TIA), and cerebral infarction without residual deficits
CPT/HCPCS: 70450; 70551; 71010; 71020; 74241; 76770; 78582; 80048; 80061; 81003; 82272; 82945; 82948; 83036; 83605; 83615 91; 83735; 83880; 83986 90; 84100; 84145 90; 84157; 84484; 85025; 85027; 85610; 85730; 86850; 86900; 86901; 86920; 87040; 87493; 88108; 88305; 89051; 93005; 93971; 94640; 94640 76; 94760; 94799; 99202; 99281; 99283; A9540; A9567; C9113; J1650; J1940; J7050; P9016; S0032

== ENCOUNTER 2016-08-27 07:44 | Inpatient (IN) | payer OTHER ==
[~2016-08-27] VITALS: Ht 160 cm; Wt 84.3 kg
[2016-08-27] VITALS (12 sets, daily range): BP systolic 86–125; BP diastolic 49–62
[~2016-08-27 07:44] MED LIST changes: +ALPRAZOLAM0.25 M2 PO; +AMIODARONE HCL100 MG PO; +AQUAPHOR W-NAT50 GM TP; +CALMOSEPTINE O120 GM TP; +DUONEB 2.5-0.5 M3 ML AEROSOL; +LASIX10 MG/ML PO; +LINEZOLID600 MG PO; +MAG-OXIDE400 MG PO; +NAFCIL2 GM IV; +NYSTATIN15 G1 TP; +PLAVIX75 MG PO; +POTASSIUM CHLO20 ME2 PO; +PROTONIX40 MG PO; +XARELTO1 EACH PO
[2016-08-27 08:38] LABS: EOSINOPHIL (%) 0.4 % (0-5); HEMATOCRIT 17.8 % (36.0-46.0); IMMATURE GRANULOCYTE (%) 0.5 % (0.0-0.7); LYMPHOCYTE COUNT 1.4 K/uL (1.0-2.8); MCH 28.9 PG (29.0-34.0); MCHC 30.9 G/DL (30.0-36.0); MCV 93.7 FL (83-99); MEAN PLAT.VOLUME 12.1 uM^3 (9.5-12.4); MONOCYTE (%) 3.9 % (3-12); MONOCYTE COUNT 0.3 K/uL (0-0.8); NEUTROPHIL (%) 76.9 % (45-76); RBC DIS.WIDTH-CV 17.1 % (11.8-14.6); RBC DIS.WIDTH-SD 57.1 % (39-53); WHITE BLOOD COUNT 7.9 K/uL (4.1-10.2)
[2016-08-27 08:39] LABS: PLATELET COUNT 117 K/uL (156-360)
[2016-08-27 08:41] LABS: INTER. NORMALIZED RATIO 1.8; PTT 32.9 (25-32)
[2016-08-27 08:45] LABS: PROTHROMBIN TIME 18.7 (9.2-11.2)
[2016-08-27 08:49] LABS: CHLORIDE 107 mEq/L (99-109); POTASSIUM 4.6 mEq/L (3.7-5.4); SODIUM 135 mEq/L (136-147)
[2016-08-27 08:51] LABS: GLUCOSE 142 mg/dL (70-99)
[2016-08-27 08:52] LABS: ANION GAP 13 MEQ/L (2-14)
[2016-08-27 08:53] LABS: TROP-I INTERPRETATION NEGATIVE; TROPONIN-I 0.08 ng/mL (0.0-0.30)
[2016-08-27 08:54] LABS: GFR ESTIMATE (CALCULATED) 47 mL/min/
[2016-08-27 08:55] LABS: UREA NITROGEN (BUN) 47 mg/dL (9-23)
[2016-08-27 09:41] LABS: ADD MIUA? YES; BILIRUBIN NEGATIVE; BLOOD SMALL; COLOR YELLOW ((YELLOW)); GLUCOSE (STRIP) NEGATIVE; KETONES NEGATIVE; LEUKOCYTES NEGATIVE; NITRITE NEGATIVE; PROTEIN (STRIP) NEGATIVE; SPECIFIC GRAVITY 1.013 (1.000-1.030); UROBILINOGEN 0.2 MG/DL (0.2-1.0)
[2016-08-27 09:49] LABS: BACTERIA NONE SEEN /HPF; EPITHELIAL CELLS NONE SEEN /HPF; MUCUS TRACE /LPF; RED BLOOD CELLS 0-5 /HPF (0-5); UCUL ADDED? NO; WHITE BLOOD CELLS 0-5 /HPF (0-5)
[2016-08-27] MEDS ORDERED: LINEZOLID600 MG PO (09:56)
[2016-08-27] MEDS ORDERED: XARELTO15 MG PO (10:00)
[2016-08-27] MEDS ORDERED: MILK OF MAGN PO (10:07)
[2016-08-27] MEDS ORDERED: TYLENOL ARTHRI650 MG PO (10:09)
[2016-08-27 16:46] LABS: HEMATOCRIT 22.5 % (36.0-46.0)
[2016-08-27 16:47] LABS: MCV 88.9 FL (83-99)
[2016-08-28] VITALS (10 sets, daily range): BP systolic 92–121; BP diastolic 51–60
[2016-08-28 00:29] LABS: HEMATOCRIT 24.8 % (36.0-46.0); MCV 88.3 FL (83-99)
[2016-08-28 05:06] LABS: HEMATOCRIT 24.4 % (36.0-46.0); MCV 88.4 FL (83-99)
[2016-08-28 05:21] LABS: CHLORIDE 109 mEq/L (99-109); POTASSIUM 4.1 mEq/L (3.7-5.4); SODIUM 137 mEq/L (136-147)
[2016-08-28 05:23] LABS: GLUCOSE 114 mg/dL (70-99)
[2016-08-28 05:25] LABS: ANION GAP 8 MEQ/L (2-14)
[2016-08-28 05:27] LABS: GFR ESTIMATE (CALCULATED) 51 mL/min/
[2016-08-28 05:28] LABS: UREA NITROGEN (BUN) 39 mg/dL (9-23)
[2016-08-28 09:00] LABS: HEMATOCRIT 21.7 % (36.0-46.0); MCV 87.5 FL (83-99)
[2016-08-28 16:24] LABS: HEMATOCRIT 25.6 % (36.0-46.0); MCV 88.9 FL (83-99)
[2016-08-28 20:07] LABS: HEMATOCRIT 26.5 % (36.0-46.0); MCV 89.2 FL (83-99)
[2016-08-29 04:49] VITALS: BP 118/52
[2016-08-29 07:00] LABS: ANION GAP 10 MEQ/L (2-14); CHLORIDE 109 MEQ/L (99-109); GFR ESTIMATE (CALCULATED) 57 mL/min/; GLUCOSE 119 mg/dL (70-99); IRON 324 MCG/DL (35-150); POTASSIUM 3.6 MEQ/L (3.7-5.4); SAMPLE HEMOLYSIS CHECK 0; SAMPLE ICTERIC CHECK 0; SAMPLE LIPEMIA CHECK 0; SODIUM 137 MEQ/L (136-147); UREA NITROGEN (BUN) 25 mg/dL (9-23)
[2016-08-29 07:03] LABS: HEMATOCRIT 25.8 % (36.0-46.0); MCH 29.3 PG (29.0-34.0); MCHC 32.9 G/DL (30.0-36.0); RBC DIS.WIDTH-CV 16.2 % (11.8-14.6); RBC DIS.WIDTH-SD 51.5 % (39-53); WHITE BLOOD COUNT 5.6 K/uL (4.1-10.2)
[2016-08-29 07:25] VITALS: BP 161/70
[2016-08-29 07:55] LABS: MEAN PLAT.VOLUME 12.4 uM^3 (9.5-12.4); PLAT.SUFFICIENCY DECREASED
[2016-08-29 07:59] LABS: PLATELET COUNT 66 K/uL (156-360)
[2016-08-29 09:10] LABS: METH RESISTANT S AUREUS PCR NEGATIVE (NEGATIVE)
[2016-08-29 09:12] LABS: PROBE CHECK PASS; SPECIMEN PROCESSING CONTROL PASS
[2016-08-29 11:56] VITALS: BP 126/56
[2016-08-29 16:24] VITALS: BP 130/59
[2016-08-29 19:35] VITALS: BP 129/61
[2016-08-29 23:50] VITALS: BP 147/72
[2016-08-30] VITALS (7 sets, daily range): BP systolic 104–147; BP diastolic 56–75
[2016-08-30 06:57] LABS: HEMATOCRIT 24.4 % (36.0-46.0)
[2016-08-30 19:59] LABS: HEMATOCRIT 28.5 % (36.0-46.0); MCV 91.1 FL (83-99)
[2016-08-31 00:10] VITALS: BP 151/71
[2016-08-31 05:07] VITALS: BP 146/65
[2016-08-31 06:55] LABS: EOSINOPHIL (%) 2.2 % (0-5); EOSINOPHIL COUNT 0.1 K/uL (0-0.3); HEMATOCRIT 28.3 % (36.0-46.0); IMMATURE GRANULOCYTE (%) 0.3 % (0.0-0.7); INSTRUMENT ABS NEUTROPHIL CT 4.3 K/uL; MCH 29.4 PG (29.0-34.0); MCHC 32.5 G/DL (30.0-36.0); MCV 90.4 FL (83-99); MEAN PLAT.VOLUME 12.2 uM^3 (9.5-12.4); MONOCYTE COUNT 0.4 K/uL (0-0.8); NEUTROPHIL (%) 73.2 % (45-76); NEUTROPHIL COUNT 4.3 K/uL (1.8-6.4); PLATELET COUNT 65 K/uL (156-360); RBC DIS.WIDTH-CV 15.9 % (11.8-14.6); RBC DIS.WIDTH-SD 52.4 % (39-53); RED BLOOD COUNT 3.13 M/uL (3.80-5.20); WHITE BLOOD COUNT 5.8 K/uL (4.1-10.2)
[2016-08-31 07:13] LABS: ANION GAP 12 MEQ/L (2-14); CHLORIDE 108 MEQ/L (99-109); GFR ESTIMATE (CALCULATED) 57 mL/min/; GLUCOSE 111 mg/dL (70-99); POTASSIUM 4.2 MEQ/L (3.7-5.4); SAMPLE HEMOLYSIS CHECK 0; SAMPLE ICTERIC CHECK 0; SAMPLE LIPEMIA CHECK 0; SODIUM 137 MEQ/L (136-147); UREA NITROGEN (BUN) 13 mg/dL (9-23)
[2016-08-31 07:20] VITALS: BP 134/63
[2016-08-31 12:16] VITALS: BP 137/71
[2016-08-31 15:20] VITALS: BP 116/62
[2016-08-31 19:25] VITALS: BP 114/60
[2016-09-01] VITALS (11 sets, daily range): BP systolic 80–132; BP diastolic 30–76
[2016-09-01 07:36] LABS: POINT-OF-CARE METER ID UU13113781
[2016-09-01 08:49] LABS: ALKALINE PHOSPHATASE 105 IU/L (3-129); ANION GAP 16 MEQ/L (2-14); CHLORIDE 111 MEQ/L (99-109); GFR ESTIMATE (CALCULATED) 51 mL/min/; GLUCOSE 133 mg/dL (70-99); POTASSIUM 3.9 MEQ/L (3.7-5.4); SAMPLE HEMOLYSIS CHECK 0; SAMPLE ICTERIC CHECK 0; SAMPLE LIPEMIA CHECK 0; SODIUM 137 MEQ/L (136-147); TOTAL BILIRUBIN 1.2 MG/DL (0.0-1.0); UREA NITROGEN (BUN) 13 mg/dL (9-23)
[2016-09-01 09:30] LABS: HEMATOCRIT 28.1 % (36.0-46.0); MCHC 32.7 G/DL (30.0-36.0); MCV 91.5 FL (83-99); NRBC (%) 0.8 /100 WBC (0-0); RBC DIS.WIDTH-CV 15.9 % (11.8-14.6); RBC DIS.WIDTH-SD 52.9 % (39-53); RED BLOOD COUNT 3.07 M/uL (3.80-5.20); WHITE BLOOD COUNT 13.2 K/uL (4.1-10.2)
[2016-09-01 09:47] LABS: BASE EXCESS -15.7 mEq/L (-3 to +3); BICARBONATE 10.6 mEq/L (22-26); CARBOXY HGB 2.3 % (0-5); METHEMOGLOBIN 1.7 % (0-1.5); PCO2 26 mm Hg (35-45); PO2 68 mm Hg (80-100)
[2016-09-01 09:48] LABS: pH 7.22 (7.35-7.45)
[2016-09-01 09:49] LABS: COMMENTS - BLOOD GASES A+C+; DEVICE NEB; O2 FLOW 8 L/MIN; SITE RR; TOTAL RESP RATE 28 resp/min
[2016-09-01 10:38] LABS: MEAN PLAT.VOLUME 12.6 uM^3 (9.5-12.4); PLAT.SUFFICIENCY DECREASED; PLATELET COUNT 67 K/uL (156-360)
[2016-09-01 18:04] LABS: ANION GAP 20 MEQ/L (2-14); CHLORIDE 110 MEQ/L (99-109); POTASSIUM 4.3 MEQ/L (3.7-5.4); SAMPLE HEMOLYSIS CHECK 0; SAMPLE ICTERIC CHECK 0; SAMPLE LIPEMIA CHECK 0; SODIUM 139 MEQ/L (136-147)
[2016-09-01 18:09] LABS: GLUCOSE 158 mg/dL (70-99); UREA NITROGEN (BUN) 17 mg/dL (9-23)
[2016-09-01 18:10] LABS: GFR ESTIMATE (CALCULATED) 31 mL/min/
[2016-09-01 18:32] LABS: BASE EXCESS -18.8 mEq/L (-3 to +3); CARBOXY HGB 1.1 % (0-5); METHEMOGLOBIN 2.5 % (0-1.5)
[2016-09-01 18:33] LABS: BICARBONATE 7.8 mEq/L (22-26); COMMENTS - BLOOD GASES A+C+; DEVICE NC; O2 FLOW 4 L/MIN; PCO2 21 mm Hg (35-45); PO2 115 mm Hg (80-100); SITE RR; TOTAL RESP RATE 28 resp/min
[2016-09-01 18:34] LABS: pH 7.18 (7.35-7.45)
[2016-09-01 22:23] LABS: TROP-I INTERPRETATION NEGATIVE; TROPONIN-I 0.18 ng/mL (0.0-0.30)
[2016-09-01 22:48] LABS: METH RESISTANT S AUREUS PCR NEGATIVE (NEGATIVE)
[2016-09-01 22:56] LABS: PROBE CHECK PASS; SPECIMEN PROCESSING CONTROL PASS
[2016-09-01 23:52] LABS: ADD MIUA? YES; BILIRUBIN NEGATIVE; BLOOD SMALL; COLOR YELLOW ((YELLOW)); GLUCOSE (STRIP) NEGATIVE; KETONES NEGATIVE; LEUKOCYTES NEGATIVE; NITRITE NEGATIVE; PROTEIN (STRIP) 30; UROBILINOGEN 0.2 MG/DL (0.2-1.0)
[2016-09-02] VITALS (25 sets, daily range): BP systolic 0–122; BP diastolic 0–93
[2016-09-02 00:04] LABS: BACTERIA RARE /HPF; EPITHELIAL CELLS RARE /HPF; MUCUS 1+ /LPF; UCUL ADDED? NO; WHITE BLOOD CELLS NONE SEEN /HPF (0-5)
[2016-09-02 00:05] LABS: GRANULAR CASTS 20-25 /LPF
[2016-09-02 05:52] LABS: ANION GAP 15 MEQ/L (2-14); CHLORIDE 112 MEQ/L (99-109); GFR ESTIMATE (CALCULATED) 29 mL/min/; GLUCOSE 129 mg/dL (70-99); MAGNESIUM 1.3 mg/dl (1.3-2.7); POTASSIUM 4.3 MEQ/L (3.7-5.4); SAMPLE HEMOLYSIS CHECK 0; SAMPLE ICTERIC CHECK 0; SAMPLE LIPEMIA CHECK 0; SODIUM 141 MEQ/L (136-147); UREA NITROGEN (BUN) 21 mg/dL (9-23)
[2016-09-02 06:12] LABS: HEMATOCRIT 24.8 % (36.0-46.0); MCH 29.5 PG (29.0-34.0); MCHC 31.5 G/DL (30.0-36.0); MCV 93.9 FL (83-99); MEAN PLAT.VOLUME 12.9 uM^3 (9.5-12.4); PLATELET COUNT 62 K/uL (156-360); RBC DIS.WIDTH-CV 16.3 % (11.8-14.6); RBC DIS.WIDTH-SD 55.6 % (39-53); RED BLOOD COUNT 2.64 M/uL (3.80-5.20)
[2016-09-02 06:45] LABS: EOSINOPHIL (%) 0 % (0-5); IMMATURE GRANULOCYTE (%) 0.8 % (0.0-0.7); IMMATURE GRANULOCYTE COUNT 0.2 K/uL; INSTRUMENT ABS NEUTROPHIL CT 22.8 K/uL; LYMPHOCYTE COUNT 0.8 K/uL (1.0-2.8); MONOCYTE (%) 0.5 % (3-12); MONOCYTE COUNT 0.1 K/uL (0-0.8); NEUTROPHIL (%) 95.2 % (45-76); NEUTROPHIL COUNT 22.8 K/uL (1.8-6.4)
[2016-09-02 11:44] LABS: CARBON DIOXIDE (BICARBONATE) 14.5 MEQ/L (20-31)
[2016-09-02 12:24] LABS: BASE EXCESS -14.1 mEq/L (-3 to +3); CARBOXY HGB 2.3 % (0-5); COMMENTS - BLOOD GASES A+C+; METHEMOGLOBIN 1.9 % (0-1.5); O2 FLOW 3 L/MIN; PCO2 34 mm Hg (35-45); PO2 63 mm Hg (80-100); SITE LR
[2016-09-02 12:25] LABS: DEVICE NC; TOTAL RESP RATE 22 resp/min
[2016-09-02 12:26] LABS: pH 7.19 (7.35-7.45)
[2016-09-02 12:35] LABS: TROP-I INTERPRETATION NEGATIVE; TROPONIN-I 0.15 ng/mL (0.0-0.30)
[2016-09-02 12:55] LABS: ANION GAP 12 MEQ/L (2-14); CHLORIDE 110 MEQ/L (99-109); GFR ESTIMATE (CALCULATED) 57 mL/min/; GLUCOSE 111 mg/dL (70-99); POTASSIUM 3.9 MEQ/L (3.7-5.4); SAMPLE HEMOLYSIS CHECK 0; SAMPLE ICTERIC CHECK 0; SAMPLE LIPEMIA CHECK 0; SODIUM 138 MEQ/L (136-147); UREA NITROGEN (BUN) 17 mg/dL (9-23)
[2016-09-02 14:32] LABS: HEMATOCRIT 25.3 % (36.0-46.0); MCV 92.3 FL (83-99)
[2016-09-02 18:10] LABS: CREATINE KINASE 174 IU/L (1-294); TOTAL CK 174 IU/L (1-294)
[2016-09-02 18:15] LABS: TROP-I INTERPRETATION NEGATIVE; TROPONIN-I 0.13 ng/mL (0.0-0.30)
[2016-09-02 18:22] LABS: POINT-OF-CARE METER ID UU13113731
[2016-09-02 18:56] LABS: CK-MB 11.9 ng/mL (0.0-4.9)
[2016-09-03] VITALS (23 sets, daily range): BP systolic 84–123; BP diastolic 27–61
[2016-09-03 00:40] LABS: POINT-OF-CARE METER ID UU13113731
[2016-09-03 00:56] LABS: CREATINE KINASE 176 IU/L (1-294); TOTAL CK 176 IU/L (1-294)
[2016-09-03 01:01] LABS: TROP-I INTERPRETATION NEGATIVE; TROPONIN-I 0.11 ng/mL (0.0-0.30)
[2016-09-03 01:02] LABS: CK-MB 8.5 ng/mL (0.0-4.9)
[2016-09-03 01:14] LABS: BASE EXCESS -8.5 mEq/L (-3 to +3); BICARBONATE 17.3 mEq/L (22-26); CARBOXY HGB 2.1 % (0-5); COMMENTS - BLOOD GASES C+A+; DEVICE NC; METHEMOGLOBIN 1.9 % (0-1.5); O2 FLOW 4 L/MIN; PCO2 36 mm Hg (35-45); PO2 71 mm Hg (80-100); SITE RR; pH 7.29 (7.35-7.45)
[2016-09-03 05:14] LABS: POINT-OF-CARE METER ID UU13113731
[2016-09-03 06:22] LABS: CREATINE KINASE 135 IU/L (1-294); TOTAL CK 135 IU/L (1-294)
[2016-09-03 06:23] LABS: ANION GAP 18 MEQ/L (2-14); CHLORIDE 110 MEQ/L (99-109); GFR ESTIMATE (CALCULATED) 27 mL/min/; GLUCOSE 220 mg/dL (70-99); HEMATOCRIT 25.7 % (36.0-46.0); MAGNESIUM 2.6 mg/dl (1.3-2.7); MCH 29.3 PG (29.0-34.0); MCHC 31.9 G/DL (30.0-36.0); MCV 91.8 FL (83-99); MEAN PLAT.VOLUME 13.7 uM^3 (9.5-12.4); PLATELET COUNT 52 K/uL (156-360); POTASSIUM 4.2 MEQ/L (3.7-5.4); RBC DIS.WIDTH-CV 16.4 % (11.8-14.6); RBC DIS.WIDTH-SD 54.6 % (39-53); SAMPLE HEMOLYSIS CHECK 0; SAMPLE ICTERIC CHECK 0; SAMPLE LIPEMIA CHECK 0; SODIUM 144 MEQ/L (136-147); TROP-I INTERPRETATION NEGATIVE; TROPONIN-I 0.12 ng/mL (0.0-0.30); UREA NITROGEN (BUN) 35 mg/dL (9-23)
[2016-09-03 07:13] LABS: CK-MB 10.8 ng/mL (0.0-4.9)
[2016-09-03 07:26] LABS: EOSINOPHIL (%) 0 % (0-5); IMMATURE GRANULOCYTE (%) 0.9 % (0.0-0.7); IMMATURE GRANULOCYTE COUNT 0.1 K/uL; INSTRUMENT ABS NEUTROPHIL CT 13.4 K/uL; LYMPHOCYTE COUNT 0.3 K/uL (1.0-2.8); MONOCYTE (%) 0.5 % (3-12); MONOCYTE COUNT 0.1 K/uL (0-0.8); NEUTROPHIL (%) 96.2 % (45-76); NEUTROPHIL COUNT 13.4 K/uL (1.8-6.4)
[2016-09-03 11:20] LABS: BASE EXCESS -11.2 mEq/L (-3 to +3); BICARBONATE 16.4 mEq/L (22-26); CARBOXY HGB 2.3 % (0-5); COMMENTS - BLOOD GASES A+C+; DEVICE NCH; METHEMOGLOBIN 2.2 % (0-1.5); O2 FLOW 7 L/MIN; PCO2 44 mm Hg (35-45); PO2 64 mm Hg (80-100); SITE LR; TOTAL RESP RATE 30 resp/min; pH 7.18 (7.35-7.45)
[2016-09-03 12:10] LABS: CREATINE KINASE 147 IU/L (1-294); TOTAL CK 147 IU/L (1-294)
[2016-09-03 12:13] LABS: TROP-I INTERPRETATION NEGATIVE; TROPONIN-I 0.12 ng/mL (0.0-0.30)
[2016-09-03 12:54] LABS: POINT-OF-CARE METER ID UU13113731
[2016-09-03 13:02] LABS: CK-MB 10.6 ng/mL (0.0-4.9)
[2016-09-03 14:34] LABS: BASE EXCESS -8.9 mEq/L (-3 to +3); CARBOXY HGB 1.5 % (0-5); COMMENTS - BLOOD GASES A+C+; DEVICE PB 980; FI02 50 %; METHEMOGLOBIN 1.7 % (0-1.5); MODE SPONT; PCO2 43 mm Hg (35-45); PEEP 5 CM/H20; PO2 123 mm Hg (80-100); PRES. SUPPORT 10 CM/H2O; SITE LR; TOTAL RESP RATE 13 resp/min; pH 7.23 (7.35-7.45)
[2016-09-03 17:10] LABS: TYPE OF FLUID PLEURAL
[2016-09-03 18:02] LABS: BODY FLUID LDH 83 IU/L
[2016-09-03 18:04] LABS: BODY FLUID PROTEIN < 4.0 G/DL
[2016-09-03 18:06] LABS: BODY FLUID EOSINOPHILS 0 % (0-25); BODY FLUID RBC'S 1000 /MM^3 (0-100); BODY FLUID WBC'S 279 /MM^3 (0-500); MONONUCLEAR WBC'S 41 %; POLYNUCLEAR WBC'S 59 % (0-25)
[2016-09-03 18:08] LABS: POINT-OF-CARE METER ID UU13113731
[2016-09-03 18:20] LABS: GLUCOSE 177 mg/dL (70-99); LACTATE DEHYDROGENASE 397 IU/L (20-246)
[2016-09-03 19:57] LABS: BASE EXCESS -9.2 mEq/L (-3 to +3); COMMENTS - BLOOD GASES C+; DEVICE VENT VIA MASK; METHEMOGLOBIN 1.5 % (0-1.5); PCO2 45 mm Hg (35-45); PO2 52 mm Hg (80-100); SITE LR; pH 7.21 (7.35-7.45)
[2016-09-03 19:58] LABS: CONTINUOUS POS AIRWAY PRESSURE 5 cm H2O; FI02 50 %; MODE SPON; PRES. SUPPORT 10 CM/H2O; TOTAL RESP RATE 25 resp/min
[2016-09-03 21:34] LABS: BASE EXCESS -8.5 mEq/L (-3 to +3); BICARBONATE 18.8 mEq/L (22-26); CARBOXY HGB 1.8 % (0-5); COMMENTS - BLOOD GASES C+A+; DEVICE NIV; FI02 70 %; METHEMOGLOBIN 1.7 % (0-1.5); MODE SPONT; PCO2 47 mm Hg (35-45); PEEP 5 CM/H20; PO2 79 mm Hg (80-100); PRES. SUPPORT 10 CM/H2O; SITE LR; TOTAL RESP RATE 19 resp/min; pH 7.21 (7.35-7.45)
[2016-09-03 23:45] LABS: BASE EXCESS -4.7 mEq/L (-3 to +3); BICARBONATE 21.6 mEq/L (22-26); CARBOXY HGB 1.8 % (0-5); COMMENTS - BLOOD GASES C+A+; DEVICE NIV; FI02 70 %; METHEMOGLOBIN 1.7 % (0-1.5); PCO2 45 mm Hg (35-45); PO2 62 mm Hg (80-100); SITE LR
[2016-09-03 23:46] LABS: MODE SPONT; PEEP 5 CM/H20; PRES. SUPPORT 10 CM/H2O; TOTAL RESP RATE 24 resp/min; pH 7.29 (7.35-7.45)
[2016-09-04] VITALS (27 sets, daily range): BP systolic 0–138; BP diastolic 0–98
[2016-09-04 01:13] LABS: POINT-OF-CARE METER ID UU13113731
[2016-09-04 06:06] LABS: HEMATOCRIT 25.3 % (36.0-46.0); MCH 29.7 PG (29.0-34.0); MCV 92.7 FL (83-99); RBC DIS.WIDTH-CV 16.5 % (11.8-14.6); RBC DIS.WIDTH-SD 56.2 % (39-53); RED BLOOD COUNT 2.73 M/uL (3.80-5.20)
[2016-09-04 06:07] LABS: WHITE BLOOD COUNT 24.9 K/uL (4.1-10.2)
[2016-09-04 06:11] LABS: BASE EXCESS -6.6 mEq/L (-3 to +3); BICARBONATE 20.2 mEq/L (22-26); CARBOXY HGB 2.1 % (0-5); PCO2 46 mm Hg (35-45); PO2 69 mm Hg (80-100)
[2016-09-04 06:12] LABS: COMMENTS - BLOOD GASES C+A+; DEVICE VENTILATOR; FI02 90 %; MECHANICAL RATE 20 resp/min; MODE AC; PEEP 5 CM/H20; SITE RR; TIDAL VOLUME 400 ML; TOTAL RESP RATE 21 resp/min; pH 7.25 (7.35-7.45)
[2016-09-04 06:21] LABS: ANION GAP 19 MEQ/L (2-14); CHLORIDE 109 MEQ/L (99-109); GFR ESTIMATE (CALCULATED) 21 mL/min/; GLUCOSE 128 mg/dL (70-99); MAGNESIUM 2.5 mg/dl (1.3-2.7); POTASSIUM 4.1 MEQ/L (3.7-5.4); SAMPLE HEMOLYSIS CHECK 0; SAMPLE ICTERIC CHECK 0; SAMPLE LIPEMIA CHECK 0; SODIUM 146 MEQ/L (136-147); UREA NITROGEN (BUN) 45 mg/dL (9-23)
[2016-09-04 06:37] LABS: ABS NEUTROPHIL COUNT 24.2; BAND NEUTROPHILS 0.9 % (0-8.0); EOSINOPHIL ABS CT 0; INSTRUMENT ABS NEUTROPHIL CT 23.3 K/uL; LYMPHOCYTES 1.9 % (15.0-45.0); MEAN PLAT.VOLUME 13.5 uM^3 (9.5-12.4); PLAT.SUFFICIENCY DECREASED; SEG.NEUTROPHILS 96.3 % (46.0-76.0)
[2016-09-04 06:38] LABS: PLATELET COUNT 75 K/uL (156-360)
[2016-09-04 17:54] LABS: POINT-OF-CARE METER ID UU14174217
[2016-09-05] VITALS (16 sets, daily range): BP systolic 84–117; BP diastolic 43–70
[2016-09-08 00:18] LABS: BODY FLUID PH 7.7 (())
== END 2016-09-05 14:55 | DRG 377 ==
LOC: EME → EDBD 07:44 → EME 07:44 → 4EAST 10:47 → EDOF 10:47 → 4WEST 10:47 → 4EAST 11:48 → 4WEST 09-01 20:31
PROVIDERS: Emergency Medicine; Internal Medicine; Internal Medicine Gastroenterology; Internal Medicine Nephrology
DX: K92.1 Melena (principal); A41.9 Sepsis, unspecified organism; R65.21 Severe sepsis with septic shock; R57.0 Cardiogenic shock; J96.00 Acute respiratory failure, unspecified whether with hypoxia or hypercapnia; J18.9 Pneumonia, unspecified organism; N17.9 Acute kidney failure, unspecified; I13.0 Hypertensive heart and chronic kidney disease with heart failure and stage 1 through stage 4 chronic kidney disease, or unspecified chronic kidney disease; I50.33 Acute on chronic diastolic (congestive) heart failure; D62 Acute posthemorrhagic anemia; I82.622 Acute embolism and thrombosis of deep veins of left upper extremity; G93.41 Metabolic encephalopathy; E87.2 Acidosis; J98.11 Atelectasis; I48.0 Paroxysmal atrial fibrillation; N18.3 Chronic kidney disease, stage 3 (moderate); B35.4 Tinea corporis; J44.9 Chronic obstructive pulmonary disease, unspecified; K44.9 Diaphragmatic hernia without obstruction or gangrene; I25.10 Atherosclerotic heart disease of native coronary artery without angina pectoris; D69.6 Thrombocytopenia, unspecified; I27.2 Other secondary pulmonary hypertension; I08.1 Rheumatic disorders of both mitral and tricuspid valves; R73.9 Hyperglycemia, unspecified; K21.9 Gastro-esophageal reflux disease without esophagitis; E78.5 Hyperlipidemia, unspecified; Z51.5 Encounter for palliative care; Z66 Do not resuscitate; Z86.718 Personal history of other venous thrombosis and embolism; Z86.73 Personal history of transient ischemic attack (TIA), and cerebral infarction without residual deficits
CPT/HCPCS: 31500; 31720; 36600; 70450; 71010; 71250; 74176; 76937; 80048; 80048 91; 80053; 81003; 82436; 82550; 82550 91; 82553; 82803; 82945; 82947 91; 82948; 83540; 83605; 83615; 83615 91; 83735; 83880; 83986 90; 84100; 84133; 84155; 84157; 84300; 84466; 84484; 85014; 85018; 85025; 85027; 85610; 85730; 86850; 86900; 86901; 86905; 86920; 87040; 87070; 87075; 87077; 87186; 87205; 87641; 88108; 88305; 89051; 93005; 93306; 94002; 94003; 94640; 94640 76; 94760; 94799; 99202; 99281; 99285; C1751; C1894; C9113; J0456; J0780; J1630; J1644; J1815; J1940; J2543; J2704; J2930; J3475; J7030; J7040; J7042; J7050; J7070; J7120; P9016; P9040